=== PATIENT | female | born 1970 | race Caucasian/White ===

== ENCOUNTER 2022-03-29 05:28 | Inpatient (IN) | payer BC ==
[2022-03-24 11:54] LABS: BASOPHILS # (AUTO) 0.1 X10'3 (0-0.2); BASOPHILS % (AUTO) 1.1 % (0-1); EOSINOPHILS # (AUTO) 0.2 X10'3 (0-0.9); EOSINOPHILS % (AUTO) 2.2 % (0-6); LYMPHOCYTES % (AUTO) 42.1 % (21-51); MEAN CORPUSCULAR HEMOGLOBIN 31.9 PG (27.0-31.0); MEAN CORPUSCULAR HGB CONC 33.9 g/dL (33.0-36.5); MEAN PLATELET VOLUME 7.9 FL (7.4-10.4); MONOCYTES # (AUTO) 0.8 X10'3 (0-0.9); MONOCYTES % (AUTO) 8.8 % (2-12); NEUTROPHILS # (AUTO) 4.4 X10'3 (1.8-7.7); NEUTROPHILS % (AUTO) 45.8 % (42-75); PRE OP HEMATOCRIT 40.5 % (35.0-45.0); PRE OP HEMOGLOBIN 13.7 g/dL (12.0-16.0); PRE OP PLATELET COUNT 354 X10'3 (140-440); RED BLOOD COUNT 4.31 X10'6 (4.20-5.60); RED CELL DISTRIBUTION WIDTH 13.9 % (11.5-14.5)
[2022-03-24 12:16] LABS: ALBUMIN 4.4 G/DL (3.4-5.0); ALBUMIN/GLOBULIN RATIO 1.2 (1.1-1.5); ALKALINE PHOSPHATASE 99 IU/L (46-116); BLOOD UREA NITROGEN 13 MG/DL (7-18); BUN/CREATININE RATIO 14.4 (6.6-38.0); CALCIUM 9.6 MG/DL (8.5-10.1); CHLORIDE 99 MMOL/L (99-107); PRE OP ALT 35 U/L (30-65); PRE OP ANION GAP 9 (8-16); PRE OP AST 17 U/L (10-37); PRE OP BILIRUB, TOTAL 0.3 MG/DL (0.0-1.0); PRE OP GLUCOSE 95 MG/DL (70-104); PRE OP POTASSIUM 4.4 MMOL/L (3.4-5.1); PRE OP SODIUM 135 MMOL/L (135-145); TOTAL CARBON DIOXIDE 27.3 MMOL/L (24-32); eGFR 66 ML/MIN
[~2022-03-29] VITALS: Ht 162.6 cm; Wt 86.6 kg
[2022-03-29] VITALS (32 sets, daily range): BP systolic 88–113; BP diastolic 40–73
[~2022-03-29 05:28] MED LIST: ERGO400C PO; ESTR0.5T28 PO; FERR-28 PO; FLUO40CA PO; FOLI0.4T14 PO; HYDR-3972 PO; POTA10CA44 PO; PROG100C11 PO; SIMV10TA98 PO; VITC500T PO; ringers solution, lacted 1,000 ML IV SCH
[2022-03-29] MEDS ORDERED: tranexamic acid inj. 1,000 MG in normal saline IV soln 100ML IV ONE (05:30)
[2022-03-29] MEDS ORDERED: celeCOXIB 100mg capsule PO ONE (05:30)
[2022-03-29] MEDS ORDERED: famotidine 20mg tablet PO ONE (05:30)
[2022-03-29] MEDS ORDERED: metoclopramide 5 mg/ml inj IV ONE (05:30)
[2022-03-29] MEDS ORDERED: oxyCODONE SR 10mg (sust. release) tab -2 tabs (20mg) PO ONE (05:30)
[2022-03-29] MEDS ORDERED: vancomycin 1,500 MG in NS 300ml IV soln IV ONE (05:30)
[2022-03-29] MEDS ORDERED: acetaminophen 325mg tablet PO ONE (05:30)
[2022-03-29] MEDS ORDERED: ceFAZolin inj. 2,000 MG in dextrose 5%-water 100 ML IV ONE (05:30)
[2022-03-29] MEDS ORDERED: gabapentin 300mg capsule PO ONE (05:30)
--- NOTE | 2022-03-29 05:35 | NUR ---
PT PEDAL PULSES STRONG AND MARKED, CSM WITHIN NORMAL LIMITS. PT TOOK [employer] SHOWER X5 AND READ EDUCATION BOOKLET PRIOR TO SURGERY. TEACHING PROVIDED FOR THE INCENTIVE SPIROMETER. PT UNDERSTOOD AND DID NOT HAVE ANY QUESTIONS. Addendum: 03/29/22 at 0937 by Brandy Lamar RN Amended: Links added.
[2022-03-29] MEDS ORDERED: oxyCODONE IR 5mg (immed. release) tablet PO PRN (06:25)
[2022-03-29] MEDS ORDERED: magnesium hydroxide 30ml (MOM) UD suspension PO PRN (06:25)
[2022-03-29] MEDS ORDERED: HYDROmorphone inj. 0.5 MG/0.5 ML DISP.SYRIN IV PRN (06:25)
[2022-03-29] MEDS ORDERED: ondansetron/PF 4mg/2ml inj IV PRN ×2 (06:25→07:05)
[2022-03-29] MEDS ORDERED: naloxone 0.4 mg/ml inj IV PRN (06:25)
[2022-03-29] MEDS ORDERED: bisacodyl 10mg suppository rectal RC PRN (06:25)
[2022-03-29] MEDS ORDERED: acetaminophen 325mg tablet PO PRN (06:25)
[2022-03-29] MEDS ORDERED: HYDROmorphone 1 mg/ml syringe IV PRN (06:25)
[2022-03-29] MEDS ORDERED: diphenhydrAMINE 25mg capsule PO PRN ×2 (06:25)
[2022-03-29] MEDS ORDERED: ketorolac trometh. 30mg/ml inj. ONE (06:33)
[2022-03-29] MEDS ORDERED: cloNIDine hcl/PF 100mcg/ml inj ONE (06:34)
[2022-03-29] MEDS ORDERED: epiNEPHrine 1 mg/ml inj ONE (06:34)
[2022-03-29] MEDS ORDERED: ROPIVAcaine 0.5% (5mg/ml) 30ml vial ONE ×2 (06:34→07:05)
[2022-03-29] MEDS ORDERED: vancomycin 1,000mg inj ONE (06:38)
[2022-03-29] MEDS ORDERED: fentaNYL/PF 50MCG/1 ML 2ML syringe IV PRN ×2 (07:05)
[2022-03-29] MEDS ORDERED: ringers solution, lacted 1,000 ML IV SCH (07:05)
[2022-03-29] MEDS ORDERED: morphine 4 MG/ML inj SYRINge IV PRN (07:05)
[2022-03-29] MEDS ORDERED: morphine 2 MG/ML inj. syringe IV PRN (07:05)
[2022-03-29] MEDS ORDERED: hydrALAZINE 20mg/ml inj. IV PRN (07:05)
[2022-03-29] MEDS ORDERED: labetalol 20mg/4ml (5mg/ml) syringe IV PRN (07:05)
[2022-03-29] MEDS ORDERED: ROPIVAcaine 0.2% (10 MG/5 ML) BOLUS INJECTION ADDCANAL PRN (07:05)
[2022-03-29] MEDS ORDERED: MIDAZolam 1mg/ml 10ml vial ONE (07:08)
[2022-03-29] MEDS ORDERED: fentaNYL/PF 50MCG/1 ML 2ML syringe ONE (07:08)
--- NOTE | 2022-03-29 08:56 | NUR ---
Received from OR via BED, accompanied by Anesthesiologist and report given by BONY Anesthesiologist. PATIENT WAKING UP, DENIES PAIN, V/S WNL, SCD ON, 18G TO BRIAN TELLES drsg to LEFT KNEE C/D/I with ON Q BALL AT 2ML/HR AND ICE POWDER PACK. Addendum: 03/29/22 at 0917 by Robert Streeter RN Amended: Links added.
[2022-03-29] MEDS: ROPIVAcaine 0.2%/PF PUMP/bolus 545 ML ADDCANAL SCH (09:05)
[2022-03-29] MEDS ORDERED: tranexamic acid inj. 900 MG in normal saline 100ml IV soln 91 ML IV ONE (12:00)
--- NOTE | 2022-03-29 12:26 | NUR ---
PATIENT HAS MET ALL CRITERIA FOR TRANSFER TO ORTHO FLOOR. VSS. DRESSINGS INTACT. BED LOW, CALL LIGHT PRESENT AND 2 RAILS UP. RN PRESENT TO ACCEPT CARE OF PATIENT AND REPORT HAS BEEN CALLED. ALL QUESTIONS ANSWERED TO ACCEPTING RN. Addendum: 03/29/22 at 1241 by Robert Streeter RN Amended: Links added.
[2022-03-29] MEDS: cefazolin/dext.iso 2gm/100ml 100 ML IV SCH (16:49)
[2022-03-29] MEDS: potassium cl 20mEq in 1/2 NS 1,000 ML IV SCH ×2 (16:51→18:47)
[2022-03-29] MEDS: oxyCODONE IR 5mg (immed. release) tablet PO PRN ×2 (17:05→20:45)
[2022-03-29] MEDS ORDERED: VANCOMYCIN 1,500MG inj. 1,500 MG in normal saline 500ml IV soln 300 ML IV ONE (19:00)
[2022-03-29] MEDS: ascorbic acid 500mg tablet PO SCH (20:32)
[2022-03-29] MEDS: gabapentin 300mg capsule PO SCH (20:32)
[2022-03-29] MEDS ORDERED: atorvastatin 10mg tablet PO SCH (21:00)
[2022-03-29] MEDS ORDERED: sennosides 8.6mg tablet PO SCH (21:00)
[2022-03-30] MEDS: potassium cl 20mEq in 1/2 NS 1,000 ML IV SCH ×2 (00:38→06:25)
[2022-03-30] MEDS: cefazolin/dext.iso 2gm/100ml 100 ML IV SCH (00:38)
[2022-03-30 02:00] VITALS: BP 128/82
[2022-03-30] MEDS: oxyCODONE IR 5mg (immed. release) tablet PO PRN ×3 (02:07→10:17)
[2022-03-30 06:00] VITALS: BP 116/69
[2022-03-30 06:26] LABS: BASOPHILS # (AUTO) 0.1 X10'3 (0-0.2); BASOPHILS % (AUTO) 0.4 % (0-1); EOSINOPHILS % (AUTO) 0.2 % (0-6); HEMATOCRIT 30.8 % (35.0-45.0); HEMOGLOBIN 10.4 g/dl (12.0-16.0); LYMPHOCYTES # (AUTO) 2.3 X10'3 (1.1-4.8); LYMPHOCYTES % (AUTO) 17.2 % (21-51); MEAN CORPUSCULAR HEMOGLOBIN 31.5 PG (27.0-31.0); MEAN CORPUSCULAR HGB CONC 33.9 g/dL (33.0-36.5); MEAN CORPUSCULAR VOLUME 92.8 FL (78-98); MEAN PLATELET VOLUME 8.4 FL (7.4-10.4); MONOCYTES # (AUTO) 1.4 X10'3 (0-0.9); MONOCYTES % (AUTO) 10.4 % (2-12); NEUTROPHILS # (AUTO) 9.6 X10'3 (1.8-7.7); NEUTROPHILS % (AUTO) 71.8 % (42-75); PLATELET COUNT 249 X10'3 (140-440); RED BLOOD COUNT 3.31 X10'6 (4.20-5.60); RED CELL DISTRIBUTION WIDTH 13.6 % (11.5-14.5); WHITE BLOOD COUNT 13.3 X10'3 (4.5-11.0)
[2022-03-30 06:38] LABS: ANION GAP 4 (8-16); CHLORIDE 107 MMOL/L (99-107); SODIUM 140 MMOL/L (135-145); TOTAL CARBON DIOXIDE 29.3 MMOL/L (24-32)
--- NOTE | 2022-03-30 06:41 | NUR ---
Patient in room ORTHO 4015. I have received report from October and had the opportunity to ask questions and assume patient care.
[2022-03-30] MEDS: gabapentin 300mg capsule PO SCH ×2 (07:53→13:01)
[2022-03-30] MEDS: ascorbic acid 500mg tablet PO SCH (07:55)
[2022-03-30] MEDS ORDERED: FLUoxetine 20mg capsule PO SCH (08:00)
[2022-03-30] MEDS ORDERED: multivitamins, therapeutics tablet PO SCH (08:00)
[2022-03-30] MEDS ORDERED: progesterone, micronized 100mg capsule PO SCH (08:00)
[2022-03-30] MEDS ORDERED: aspirin 325mg tablet PO SCH (08:30)
--- NOTE | 2022-03-30 10:43 | NUR ---
Joint surgery consult: Pt s/p L knee surgery this admit per EMR. Pt seen by RUDY for written/verbal high protein diet ed w/ RD contact information provided. RUDY encouraged pt to contact dietitian's office if further questions/concerns. Addendum: 03/30/22 at [address] Amended: Links added.
[2022-03-30] MEDS: ROPIVAcaine 0.2%/PF PUMP/bolus 545 ML ADDCANAL SCH (12:49)
--- NOTE | 2022-03-30 13:15 | NUR ---
[employer] documentation: I have reviewed and agree with all interventions, assessments performed and documented by Lynn Sommer
--- NOTE | 2022-03-30 13:15 | NUR ---
PT. discharged with all personal belongings via wheelchair to personal vehicle accompanied by staff and family member. IV discontinued, cannula intact, pt. tolerated procedure well. Pt given discharge instructions, verbalized understanding and had the opportunity to ask questions.
[2022-03-30] MEDS ORDERED: celeCOXIB 100mg capsule PO SCH (20:00)
== END 2022-03-30 13:15 | disposition home or self-care (01) | DRG 470 ==
LOC: PAS 05:28 → PAS IN 06:25 → ORTHO 4S 12:35
PROVIDERS: ADMIT Orthopaedic Surgery; ATTEND Orthopaedic Surgery
PROC: 3E0T3BZ Introduction of Anesthetic Agent into Peripheral Nerves and Plexi, Percutaneous Approach (ICD-10-PCS; 2022-03-29)
PROC: 3E0T33Z Introduction of Anti-inflammatory into Peripheral Nerves and Plexi, Percutaneous Approach (ICD-10-PCS; 2022-03-29)
PROC: 0SRD0J9 Replacement of Left Knee Joint with Synthetic Substitute, Cemented, Open Approach (ICD-10-PCS; principal; 2022-03-29 07:12)
DX: M17.12 Unilateral primary osteoarthritis, left knee (principal); N18.2 Chronic kidney disease, stage 2 (mild); G47.30 Sleep apnea, unspecified; G89.29 Other chronic pain; E66.9 Obesity, unspecified; Z79.899 Other long term (current) drug therapy; Z68.32 Body mass index [BMI] 32.0-32.9, adult
CPT/HCPCS: Z7506; Z7508; 36415; 71046; 73560; 80051; 80053; 82948; 85025; 86870; 86885; 86900; 86901; 87081; 87811; 97110; 97116; 97162; 97530; A4215; A6449; A7000; C1713; C1776; G0378; J0171; J0690; J0735; J1885; J2250; J2765; J2795; J3010; J3370; J3480; J3490; J7030; J7040; J7060; J7120